=== PATIENT | male | born 1950 ===

== ENCOUNTER 2020-05-23 05:49 | Inpatient (IN) | payer OTHER, SELFPAY ==
[2020-05-23 06:44] LABS: Absolute Lymphocytes (CBC) 1.3 K/uL (0.7-4.9); Basophils % 0.2 % (0-1.3); Hematocrit 39.2 % (39.6-49.0); Lymphocytes % 8.6 % (15.3-44.8); MPV 7.7 fL (7.6-11.3); RBC Red Blood Cell Count 4.35 M/uL (4.33-5.43)
[2020-05-23] MEDS ORDERED: NA CHLORIDE 0.9% 500 ML ONE (06:44)
[2020-05-23 06:45] LABS: Protime INR 1.03
[2020-05-23 07:11] LABS: ALT/SGPT 38 U/L (12-78); AST/SGOT 42 U/L (15-37); Albumin 3.1 g/dL (3.4-5.0); Alkaline Phosphatase 117 U/L (45-117); BUN Blood Urea Nitrogen 14 mg/dL (7-18); Bicarbonate 26 mmol/L (21-32); Bilirubin Direct 0.1 mg/dL (0-0.2); Bilirubin Total 0.4 mg/dL (0.2-1.0); Glucose Level 108 mg/dL (74-106); Lipase 101 U/L (73-393); Magnesium 2.8 mg/dL (1.8-2.4); NT PRO-BNP 151 pg/mL (<125); Potassium 3.8 mmol/L (3.5-5.1); Protein, Total 6.8 g/dL (6.4-8.2); Sodium Level 142 mmol/L (136-145); Troponin (Emerg Dept Use Only) < 0.02 ng/mL (0.0-0.045)
[2020-05-23 07:25] LABS: Creatine Phosphokinase 1378 U/L (39-308)
[2020-05-23 08:17] LABS: Urine Appearance CLOUDY (Clear); Urine Bilirubin NEGATIVE (Negative); Urine Blood 3+ (Negative); Urine Color YELLOW (Yellow); Urine Glucose NEGATIVE (Negative); Urine Protein TRACE (Negative); Urine pH 6.5 (5.0-7.0)
[2020-05-23 08:18] LABS: Urine Microscopic Reflex ORDER UMIC
--- NOTE | 2020-05-23 08:19 | RAD REPORT ---
EXAM DESCRIPTION: CT - Head Brain Wo Cont - 05/23/2020 6:51 am CLINICAL HISTORY: SYNCOPE Fall, trauma, head injury COMPARISON: No comparisons TECHNIQUE: All CT scans are performed using dose optimization technique as appropriate and may inclu de automated exposure control or mA/KV adjustment according to patient size. FINDINGS: No intracranial hemorrhage, hydrocephalus or extra-axial fluid collection.Mild brain atrop hy is present.No areas of brain edema or evidence of midline shift. The paranasal sinuses and mastoids are clear. The calvarium is intact. IMPRESSION: No acute intracranial abnormality.
[2020-05-23 08:20] LABS: Urine Bacteria <20 /HPF (NONE SEEN); Urine RBC 20-50 /HPF (NONE SEEN)
--- NOTE | 2020-05-23 08:44 | ER ---
Nurse's Notes [facility] Name: Selvin Pappas Age: 69 yrs Sex: Male : 1950 Arrival Date: 05/23/2020 Time: 05:50 Bed 16 [facility] MD: Diagnosis: Syncope and collapse Presentation: 05/23 05:54 Chief complaint: EMS states: they were initially toned out for report of pt falling out bb of bed they did a lift assist and pt refused to come to the ED at that time then pt got up to go to the bathroom later and had a syncopal episode. Coronavirus screen: At this time, the client does not indicate any symptoms associated with coronavirus-19. Ebola Screen: No symptoms or risks identified at this time. Initial Sepsis Screen: Does the patient meet any 2 criteria? No. Patient's initial sepsis screen is negative. Does the patient have a suspected source of infection? No. Patient's initial sepsis screen is negative. Risk Assessment: Do you want to hurt yourself or someone else? Patient reports no desire to harm self or others. Onset of symptoms was May 23, 2020. 05:54 Method Of Arrival: EMS: [facility] bb 05:54 Acuity: MIKE 2 bb 06:00 Care prior to arrival: Glucose check: 125. bb Historical: - Allergies: 05:59 PENICILLINS; bb - Home Meds: 05:59 gabapentin oral oral [Active]; bb - PMHx: 05:59 Hypertension; unable to obtain full medical history; bb - PSHx: 05:59 Unable to obtain; bb - Immunization history:: Adult Immunizations up to date, Adult Immunizations up to date, Arsh and Arsh. - Social history:: Smoking status: Patient denies any tobacco usage or history of. Smoking status: Patient denies any tobacco usage or history of. Patient/guardian denies using alcohol, street drugs, IV drugs. - Family history:: not pertinent. - Hospitalizations: : No recent hospitalization is reported. Screenin:53 Abuse screen: Denies threats or abuse. Denies injuries from another. Nutritional sf screening: No deficits noted. Tuberculosis screening: No symptoms or risk factors identified. Fall Risk Fall in past 12 months (25 points). No secondary diagnosis (0 pts). IV access (20 points). Ambulatory Aid- None/Bed Rest/Nurse Assist (0 pts). Gait- Weak (10 pts.). Mental Status- Oriented to own ability (0 pts). Total Valle Fall Scale indicates High Risk Score (45 or more points). Assessment: 05:53 General: Appears in no apparent distress. comfortable, obese, unkempt, Behavior is sf calm, cooperative. Pain: Complains of pain in right connor and left knee. Neuro: Level of Consciousness is awake, alert, Oriented to person, place, time, situation, Reports a syncopal episode Denies weakness dizziness, difficulty swallowing, paresthesias numbness headache. Cardiovascular: Reports syncope, Denies chest pain, shortness of breath, Patient's skin is warm and dry. Edema is 3+ to left leg and right leg Rhythm is sinus rhythm with 1st degree heart block. Respiratory: No deficits noted. Airway is patent Respiratory effort is even, unlabored, Respiratory pattern is regular, symmetrical. GI: No signs and/or symptoms were reported involving the gastrointestinal system. Abdomen is obese. : No deficits noted. No signs and/or symptoms were reported regarding the genitourinary system. EENT: No deficits noted. No signs and/or symptoms were reported regarding the EENT system. Derm: Skin is pink, warm \T\ dry. Wound noted right connor and left knee Wound is left knee abrasion, no bleeding, scrapes to right connor. Musculoskeletal: Circulation, motion, and sensation intact. Range of motion: limited in all extremities, Reports pain in right connor and left knee. 07:18 Reassessment: Patient appears in no apparent distress at this time. Patient and/or jd3 family updated on plan of care and expected duration. Pain level reassessed. Patient is alert, oriented x 3, equal unlabored respirations, skin warm/dry/pink. pt resting in room, no sign of distress at this time, call light in reach. 09:11 Reassessment: Patient appears in no apparent distress at this time. Patient and/or bw family updated on plan of care and expected duration. Pain level reassessed. Patient is alert, oriented x 3, equal unlabored respirations, skin warm/dry/pink. 09:11 Reassessment: unable to get standing orthostatic bp due to pt injury from falling and bw weight. reported to Dr. Driver. 11:10 Reassessment: Patient appears in no apparent distress at this time. Patient and/or bw family updated on plan of care and expected duration. Pain level reassessed. Patient is alert, oriented x 3, equal unlabored respirations, skin warm/dry/pink. 12:27 Reassessment: Patient appears in no apparent distress at this time. Patient and/or bw family updated on plan of care and expected duration. Pain level reassessed. Patient is alert, oriented x 3, equal unlabored respirations, skin warm/dry/pink. 12:40 Reassessment: Spoke with patients . Pt moved to hospital bed. bw Vital Signs: 05:54 BP 131 / 56; Pulse 83; Resp 18 S; Temp 98.1(O); Pulse Ox 97% on R/A; Weight 172.37 kg bb (R); Height 6 ft. 0 in. (182.88 cm) (R); Pain 7/10; 06:00 BP 122 / 62; Pulse 76; Resp 18; Pulse Ox 97% ; sf 06:30 BP 135 / 60; Pulse 79; Resp 18; Pulse Ox 97% ; sf 06:54 BP 139 / 60; Pulse 82; Resp 18; Pulse Ox 100% ; sf 07:19 BP 141 / 62; Pulse 80; Resp 17 S; Pulse Ox 97% on R/A; jd3 09:11 BP 123 / 57 Supine; Pulse 84; Resp 20; Pulse Ox 98% on R/A; bw 09:11 BP 118 / 69 Sitting; Pulse 95; Resp 20; Pulse Ox 98% ; bw 11:10 BP 134 / 64; Pulse 86; Resp 18; Pulse Ox 95% on R/A; bw 12:40 BP 104 / 86; Pulse 79; Resp 18; Pulse Ox 96% ; bw 05:54 Body Mass Index 51.54 (172.37 kg, 182.88 cm) ED Course: 05:50 Patient arrived in ED. cl3 05:53 Dimitrios Seymour RN is Primary Nurse. sf 05:53 Patient has correct armband on for positive identification. Placed in gown. Bed in low sf position. Call light in reach. Side rails up X2. threat monitoring analyst on. Pulse ox on. NIBP on. Door closed. Noise minimized. Visitors limited. Lights dimmed. Warm blanket given. Verbal reassurance given. 05:58 Triage completed. bb 05:59 Hernandez, Joao, MD is Attending Physician. rn 05:59 Arm band placed on Patient placed in an exam room, on a stretcher, on equipment monitor phototypesetting, bb on pulse oximetry. 06:15 Initial lab(s) drawn, by me, sent to lab. Inserted saline lock: 20 gauge in left sf antecubital area, using aseptic technique. Blood collected. 06:15 BNP Sent, Basic Metabolic Panel, CBC with Diff, CPK, Hepatic Function, Lipase, sf Magnesium Sent. 06:15 Troponin (emerg Dept Use Only), Ptt, Activated, Protime (+inr) Sent. sf 06:32 EKG done, by ED staff, reviewed by Joao Hernandez MD. sf 06:[address] via stretcher. sf 06:45 CT Head Brain wo Cont Sent. sf 06:55 Patient moved back from CT. sf 07:02 Report given to LILLIE Skaggs. sf 07:18 Giles Madrigal RN is Primary Nurse. [facility] 07:27 Attending Physician role handed off by Joao Hernandez MD tw4 07:27 Aureliano Driver MD is Attending Physician. tw4 08:03 Urine Microscopic Only Sent. 5 08:03 UA Sent. 5 08:43 Terrell Hernandez MD is Hospitalizing Provider. tw4 11:40 CT Stone Protocol In Process Unspecified. EDMI 12:27 No provider procedures requiring assistance completed. Patient admitted, IV remains in bw place. 12:54 Urine Culture Sent. bw Administered Medications: 06:27 Drug: NS 0.9% 500 ml Route: IV; Rate: bolus; Site: left antecubital; 09:01 Drug: Cipro (ciprofloxacin) 500 mg Route: PO; 11:13 Follow up: Response: No adverse reaction Point of Care Testing: Blood Glucose: 06:18 Blood Glucose: 105 mg/dL; Ranges: Outcome: 08:44 Decision to Hospitalize by Provider. tw4 12:27 Admitted to Med/surg 12:27 Condition: stable 12:27 Discharge instructions given to patient, family. 14:44 Patient left the ED. eb Signatures: Dispatcher [employer] EDMI Merari Beck RN RN bb Nieto, Roman, MD MD rn Martinez, Maria [facility] Giles Madrigal RN RN jd3 Wadley, Aureliano, MD MD tw4 Emily Miramontes Charde cl3 Dimitrios Seymour RN RN Kae Moody RN RN Corrections: (The following items were deleted from the chart) 06:02 05:53 General: Appears in no apparent distress. comfortable, Behavior is calm, sf cooperative, sf 06:02 05:53 Cardiovascular: No deficits noted. Reports syncope, Denies chest pain, shortness sf of breath, Patient's skin is warm and dry. Rhythm is sinus rhythm sf 06:38 06:24 PROBNP+C.LAB.BRZ drawn and sent. sf sf 06:38 06:24 BASIC METABOLIC PANEL+C.LAB.BRZ drawn and sent. sf sf 06:38 06:24 CBC+H.LAB.BRZ drawn and sent. sf sf 06:38 06:24 CREATINE PHOSPHOKINASE+C.LAB.BRZ drawn and sent. sf sf 06:38 06:24 HEPATIC FUNCTION+C.LAB.BRZ drawn and sent. sf sf 06:38 06:24 LIPASE+C.LAB.BRZ drawn and sent. sf sf 06:38 06:24 MAGNESIUM+C.LAB.BRZ drawn and sent. sf sf 06:40 05:53 Cardiovascular: Reports syncope, Denies chest pain, shortness of breath, sf Patient's skin is warm and dry. Edema is 3+ to left leg and right leg Rhythm is sinus rhythm sf 06:41 06:18 Reassessment: FSB mg/dL sf sf 06:50 06:45 TROPONIN (EMERG DEPT USE ONLY)+C.LAB.BRZ drawn and sent. sf 06:50 06:45 PTT, ACTIVATED+COAG.LAB.BRZ drawn and sent. sf sf 06:50 06:46 PROTIME (+INR)+COAG.LAB.BRZ drawn and sent. [facility] 06:56 06:[address] Patient moved [address]. sf sf
--- NOTE | 2020-05-23 08:44 | EDPHYS ---
Physician Documentation [facility] Name: Selvin Pappas Age: 69 yrs Sex: Male : 1950 Arrival Date: 05/23/2020 Time: 05:50 Bed 16 Private MD: ED Physician Aureliano Driver HPI: 05/23 06:43 This 69 yrs old Unknown Male presents to ER via EMS with complaints of Syncope. rn 06:43 The patient has experienced syncope. Onset: The symptoms/episode began/occurred just rn prior to arrival. Duration: This was a single episode. Associated injury: Other: abrasion, contusion, bilateral knees. Associated signs and symptoms: Pertinent negatives: abdominal pain, agitation, blurred vision, chest pain, confusion, diaphoresis, headache. Current symptoms: Currently, the patient is not experiencing any symptoms. The patient has not experienced similar symptoms in the past. The patient has not recently seen a physician. Reports now 3 episodes of syncope over last 3 days, nothing feels broken, landed on his knees this AM when getting up to urinate, does not feel it coming, just wakes up on ground. No chest pain/sob/abd pain/vomiting/diarrhea. . 06:43 Also feels like his gabapentin that he started this week may be contributing to his rn syncope. . Historical: - Allergies: 05:59 PENICILLINS; bb - Home Meds: 05:59 gabapentin oral oral [Active]; bb - PMHx: 05:59 Hypertension; unable to obtain full medical history; bb - PSHx: 05:59 Unable to obtain; bb - Immunization history:: Adult Immunizations up to date, Adult Immunizations up to date, Arsh and Arsh. - Social history:: Smoking status: Patient denies any tobacco usage or history of. Smoking status: Patient denies any tobacco usage or history of. Patient/guardian denies using alcohol, street drugs, IV drugs. - Family history:: not pertinent. - Hospitalizations: : No recent hospitalization is reported. ROS: 06:43 Constitutional: Negative for fever, chills, and weight loss, Eyes: Negative for injury, rn pain, redness, and discharge, Neck: Negative for injury, pain, and swelling, Cardiovascular: Negative for chest pain, palpitations, and edema, Respiratory: Negative for shortness of breath, cough, wheezing, and pleuritic chest pain, Abdomen/GI: Negative for abdominal pain, nausea, vomiting, diarrhea, and constipation, Back: + chronic back pain : + increased urinary frequency MS/Extremity: + abrasions to knees Skin: Negative for injury, rash, and discoloration, Neuro: Negative for headache, numbness, tingling, and seizure. Exam: 06:43 Constitutional: Overweight male, no acute distress, appears weak all over Head/Face: rn Normocephalic, atraumatic. Cardiovascular: Regular rate and rhythm. No pulse deficits. Respiratory: No increased work of breathing, no retractions or nasal flaring. Abdomen/GI: soft, non-tender, no masses Skin: Warm, dry MS/ Extremity: Pulses equal, no cyanosis, + abrasions bilateral knees, no gross deformity Neuro: Awake and alert, GCS 15, oriented to person, place, time, and situation. Cranial nerves II-XII grossly intact. Motor strength 4/5 in all extremities. Sensory grossly intact. Vital Signs: 05:54 BP 131 / 56; Pulse 83; Resp 18 S; Temp 98.1(O); Pulse Ox 97% on R/A; Weight 172.37 kg bb (R); Height 6 ft. 0 in. (182.88 cm) (R); Pain 7/10; 06:00 BP 122 / 62; Pulse 76; Resp 18; Pulse Ox 97% ; sf 06:30 BP 135 / 60; Pulse 79; Resp 18; Pulse Ox 97% ; sf 06:54 BP 139 / 60; Pulse 82; Resp 18; Pulse Ox 100% ; sf 07:19 BP 141 / 62; Pulse 80; Resp 17 S; Pulse Ox 97% on R/A; jd3 09:11 BP 123 / 57 Supine; Pulse 84; Resp 20; Pulse Ox 98% on R/A; bw 09:11 BP 118 / 69 Sitting; Pulse 95; Resp 20; Pulse Ox 98% ; bw 11:10 BP 134 / 64; Pulse 86; Resp 18; Pulse Ox 95% on R/A; bw 12:40 BP 104 / 86; Pulse 79; Resp 18; Pulse Ox 96% ; bw 05:54 Body Mass Index 51.54 (172.37 kg, 182.88 cm) MDM: 05:59 Patient medically screened. rn 18:05 Differential Diagnosis: aortic aneurysm, cardiac arrhythmia, vasovagal episode. Data tw4 reviewed: vital signs, nurses notes. Data interpreted: Pulse oximetry: Interpretation: normal. Counseling: I had a detailed discussion with the patient and/or guardian regarding: the historical points, exam findings, and any diagnostic results supporting the discharge/admit diagnosis, the presence of at least one elevated blood pressure reading (>120/80) during this emergency department visit, lab results, radiology results. Physician consultation: Terrell Hernandez MD regarding admission, to the telemetry unit. patient's condition, and will see patient in ED. 05/23 06:10 Order name: Basic Metabolic Panel rn 05/23 06:10 Order name: CBC with Diff rn 05/23 06:10 Order name: CPK rn 05/23 06:10 Order name: Hepatic Function rn 05/23 06:10 Order name: Lipase rn 05/23 06:10 Order name: Magnesium rn 05/23 06:10 Order name: Protime (+inr) rn 05/23 06:10 Order name: Ptt, Activated rn 05/23 06:10 Order name: Troponin (emerg Dept Use Only) rn 05/23 06:10 Order name: BNP rn 05/23 06:10 Order name: Urine Microscopic Only rn 05/23 06:31 Order name: Glucose, Ancillary Testing; Complete Time: 06:59 EDMS 05/23 06:44 Order name: CBC with Automated Diff; Complete Time: 06:59 EDMS 05/23 07:30 Interpretation: Normal except: WBC 15.00; HGB 12.6; HCT 39.2; LYM% 8.6; GUS% 83.0; NEUT tw4 A 12.4. 05/23 06:47 Order name: Protime (+INR); Complete Time: 06:59 EDMS 05/23 06:47 Order name: PTT, Activated Partial Thromb; Complete Time: 06:59 EDMS 05/23 07:25 Order name: Basic Metabolic Panel; Complete Time: 07:28 EDMS 05/23 07:28 Interpretation: Normal except: GLUC 108; GFR 34; CRE 1.96. tw4 05/23 07:25 Order name: Liver (Hepatic) Function; Complete Time: 07:28 EDMS 05/23 07:28 Interpretation: Normal except: AST 42; ALB 3.1; GLOB 3.7; A/G 0.8. [facility] 05/23 07:25 Order name: Creatine Phosphokinase; Complete Time: 07:28 EDMS 05/23 07:28 Interpretation: Normal except: CPK 1378. [facility] 05/23 07:25 Order name: Troponin (Emerg Dept Use Only); Complete Time: 07:28 EDMS 05/23 07:29 Interpretation: Within normal limits: TROPED < 0.02. 05/23 07:25 Order name: NT PRO-BNP; Complete Time: 07:28 EDMS 05/23 07:29 Interpretation: Abnormal: NT PRO-BNP 151. [facility] 05/23 07:25 Order name: Magnesium; Complete Time: 07:28 EDMS 05/23 07:29 Interpretation: Abnormal: MG 2.8. [facility] 05/23 07:25 Order name: Lipase; Complete Time: 07:28 EDIL 05/23 07:29 Interpretation: Within normal limits: LIP 101. [facility] 05/23 07:51 Order name: UA 05/23 08:18 Order name: Urinalysis; Complete Time: 08:33 EDIL 05/23 08:33 Interpretation: UESTR 3+; UPROT TRACE; UBLD 3+. [facility] 05/23 08:20 Order name: Urine Microscopic Only; Complete Time: 08:34 EDIL 05/23 08:34 Interpretation: SQEPI 5-10; URBC 20-50; UWBC >50. [facility] 05/23 10:42 Order name: Urine Culture [facility] 05/23 12:53 Order name: COVID-19 : Document "Date of Symptom Onset" if Symptomatic. 05/23 13:12 Order name: CORONAVIRUS EDIL 05/23 14:00 Order name: SARS-COV-2 RT PCR EDIL 05/23 14:29 Order name: C-Reactive Protein EDIL 05/23 06:10 Order name: CT Head Brain wo Cont; Complete Time: 06:59 rn 05/23 06:10 Order name: EKG; Complete Time: 06:11 rn 05/23 06:10 Order name: Cardiac monitoring; Complete Time: 06:11 rn 05/23 06:10 Order name: EKG - Nurse/Tech; Complete Time: 06:37 rn 05/23 06:10 Order name: IV Saline Lock; Complete Time: 06:20 rn 05/23 06:10 Order name: Labs collected and sent; Complete Time: 06:20 rn 05/23 06:10 Order name: O2 Per Protocol; Complete Time: 06:11 rn 05/23 06:10 Order name: O2 Sat Monitoring; Complete Time: 06:11 05/23 06:10 Order name: Urine Dipstick-Ancillary (obtain specimen); Complete Time: 07:56 rn 05/23 06:10 Order name: Glucose Level; Complete Time: 06:20 05/23 08:20 Order name: CT; Complete Time: 08:27 EDIL 05/23 08:35 Order name: Orthostatic Blood Pressure; Complete Time: 09:01 [facility] 05/23 10:23 Order name: CT Stone Protocol [facility] 05/23 12:48 Order name: CONS Physician Consult; Complete Time: 12:54 [facility] 05/23 14:33 Order name: US [facility] 05/23 14:41 Order name: T4 Free [facility] 05/23 14:41 Order name: Thyroid Stimulating Hormone EDMS Administered Medications: 06:27 Drug: NS 0.9% 500 ml Route: IV; Rate: bolus; Site: left antecubital; sf 09:01 Drug: Cipro (ciprofloxacin) 500 mg Route: PO; bw 11:13 Follow up: Response: No adverse reaction bw Point of Care Testing: Blood Glucose: 06:18 Blood Glucose: 105 mg/dL; sf Ranges: Critical Glucose Levels:Adult <50 mg/dl or >400 mg/dl <40 mg/dl or >180 mg/dl Disposition: 05/23/20 08:44 Hospitalization ordered by Terrell Hernandez for Observation. Preliminary diagnosis is Syncope and collapse. - Bed requested for Telemetry/MedSurg (observation). - Status is Observation. eb - Condition is Stable. - Problem is an ongoing problem. - Symptoms are unchanged. Signatures: Dispatcher [employer] [facility] Mckayla Naidu RN RN dw Ballard, Brenda, RN RN bb Nieto, Roman, MD MD rn Wadley, Terrence, MD MD tw4 Emily Miramontes Steven, RN RN sf MoodyKae RN RN bw Corrections: (The following items were deleted from the chart) 14:19 08:44 Hospitalization Ordered by Terrell Hernandez MD for Observation. Preliminary dw diagnosis is Syncope and collapse. Bed requested for Telemetry/MedSurg (observation). Status is Observation. Condition is Stable. Problem is an ongoing problem. Symptoms are unchanged. tw4 14:44 14:19 05/23/2020 08:44 Hospitalization Ordered by Terrell Hernandez MD for Observation. eb Preliminary diagnosis is Syncope and collapse. Bed requested for Telemetry/MedSurg (observation). Status is Observation. Condition is Stable. Problem is an ongoing problem. Symptoms are unchanged. dw
[2020-05-23] MEDS ORDERED: CIPROFLOXACIN HCL 500 MG TAB ONE (09:05)
--- NOTE | 2020-05-23 12:12 | RAD REPORT ---
EXAM DESCRIPTION: CT - Stone Protocol - 05/23/2020 11:40 am CLINICAL HISTORY: Flank pain. KIDNEY STONES COMPARISON: No comparisons TECHNIQUE: Axial images were obtained without oral or IV contrast. Lack of contrast limits solid org an and vascular assessment. The [id number] spans the entirety of the system partially obscuring uppermost abdomen and lung bases. Coronal reformatted images were obtained and reviewed. All CT scans are performed using dose optimization technique as appropriate and may include automated exposure control or mA/KV adjustment according to patient size. FINDINGS: Mild linear subsegmental atelectasis is present in both lung bases posteriorly. Small hiat al hernia. Small low-density lesion measuring 11 mm is seen in the anterior right lobe of the liver.No intra or extrahepatic biliary tree dilatation. The pancreas and adrenal glands are normal. No pathologic lymph adenopathy in the abdomen or pelvis. Several stones are present in the left kidney. No hydronephrosis is seen. No right-sided stones or hy dronephrosis. No bowel obstruction, free air, free fluid or abscess. Normal appendix noted.Moderate stool is presen t throughout the colon. Moderate lumbar degenerative changes are present. IMPRESSION: Left nephrolithiasis is noted without hydronephrosis. Moderate retained stool throughout the colon.
[2020-05-23] MEDS ORDERED: NA CHLORIDE 0.9% 1,000 ML ONE (14:21)
--- NOTE | 2020-05-23 14:32 | RAD REPORT ---
EXAM DESCRIPTION: - CP - 05/23/2020 2:06 pm CLINICAL HISTORY: syncope COMPARISON: No comparisons TECHNIQUE: Real-time sonographic evaluation of bilateral carotid and vertebral systems was performed . Hinton scale and Doppler interrogation were performed with waveform tracing bilaterally. FINDINGS: Normal high resistance waveforms are noted in both external carotid arteries. The common c arotid arteries and internal carotid arteries show normal low resistance waveforms. Mild plaquing changes are present without visual evidence for significant luminal narrowing. Peak sys tolic and end diastolic velocity values and the ICA/CCA ratios are in the non-hemodynamically signifi cant range. Antegrade flow was identified in the left vertebral artery. Right vertebral artery could not be visua lized. Velocity values and ratios were recorded and are retained in the patient's imaging records. IMPRESSION: No significant atherosclerotic changes noted. No evidence of a hemodynamically significant stenosis. Nonvisualization of the right vertebral artery. Nonvisualization does not necessarily equate to disse ction or occlusion. Nonvisualization can occur in normal asymptomatic patients due to small vessel si ze or anatomic limitations.
[2020-05-23 14:41] LABS: Thyroid Stimulating Hormone 2.53 uIU/mL (0.360-3.740)
[2020-05-23] MEDS: NA CHLORIDE 0.9% 1,000 ML IV SCH ×2 (15:16→22:21)
[2020-05-23 15:44] VITALS: BMI 51.5
--- NOTE | 2020-05-23 17:49 | P.HP ---
Certification for Inpatient Patient admitted to: Inpatient With expected LOS: >2 Midnights Practitioner: I am a practitioner with admitting privileges, knowledge of patient current condition, hospital course, and medical plan of care. Services: Services provided to patient in accordance with Admission requirements found in Title 42 Section 412.3 of the Code of Federal Regulations Patient History Date of Service: 05/23/20 Reason for admission: MATT, UTI, Syncope History of Present Illness: 69yo M, presents to ED after multiple falls and 3 syncopal episodes at home. Patient states he was in usual state of health until ~3-4 days ago. He began to have generalized weakness, one episodes of "burning up". Over past 2 days he fell trying to get out of bed due to generalized weakness. He had 2-3 episodes of "blacking out" for a few seconds when getting up to go to the bathroom. He reports urinating more frequently lately. After this happened, he feels like his L leg is slightly weaker - but states this is chronic and happens from time to time, since he has had chronic back pain. Was told he needed surgery for his back but he declines. Workup in ED revealed negative CT Head, leukocytosis, MATT, UA concerning for UTI. He reports h/o kidney stone and infection in the past. He is admitted for further evaluation / treatment. Allergies Penicillins Allergy (Verified 05/23/20 11:18) Hives/Rash Home Medications: Amlodipine Besylate 10 mg PO DAILY 05/23/20 Aspirin 81 mg PO DAILY 05/23/20 Atorvastatin Calcium [Lipitor] 80 mg PO DAILY 05/23/20 Bupropion HCl [Wellbutrin Xl] 300 mg PO DAILY 05/23/20 Gabapentin 300 mg PO DAILY 05/23/20 Gabapentin 600 mg PO BEDTIME 05/23/20 Losartan Potassium 1 tab PO DAILY 05/23/20 Melatonin [Melatonin*] 1 tab PO BEDTIME 05/23/20 Niacin [Niacin ER] 1 tab PO BEDTIME 05/23/20 Potassium Gluconate [Potassium] 99 mg PO BEDTIME 05/23/20 Trazodone HCl [Desyrel] 1 tab PO BEDTIME 05/23/20 Venlafaxine HCl [Effexor] 150 mg PO DAILY 05/23/20 Zolpidem Tartrate [Ambien] 10 mg PO BEDTIME 05/23/20 hydroCHLOROthiazide [Hydrochlorothiazide*] 25 mg PO DAILY 05/23/20 - Past Medical/Surgical History Has patient received pneumonia vaccine in the past: No Diabetic: No -: HTN -: Anxiety -: Depression -: Insomnia -: Frequent falls -: Chronic pain -: Neck fusion - Family History Father -: Hypertension Mother -: Hypertension - Social History Smoking Status: Former smoker Alcohol use: No CD- Drugs: No Caffeine use: Yes Place of Residence: Home Review of Systems 10-point ROS is otherwise unremarkable Physical Examination - Vital Signs Temperature: 98.1 F Blood Pressure: 104/86 Pulse: 79 Respirations: 18 - Studies Laboratory Data (last 24 hrs) 05/23/20 06:15: PT 11.8, INR 1.03, APTT 30.3 05/23/20 06:15: WBC 15.00 H, Hgb 12.6 L, Hct 39.2 L, Plt Count 287 05/23/20 06:15: Sodium 142, Potassium 3.8, BUN 14, Creatinine 1.96 H, Glucose 108 H, Magnesium 2.8 H, Total Bilirubin 0.4, AST 42 H, ALT 38, Alkaline Phosphatase 117, Lipase 101 Assessment and Plan - Advance Directives Does patient have a Living Will: No Does patient have a Durable POA for Healthcare: No Physician Review Additional Text: Physical Exam: Gen: NAD, obese HEENT: normal conjunctiva, sclera anicteric CV: regular rate/rhythm, no murmur Pulm: diminished bilaterally, but clear to auscultation Abd: soft, nontender, nondistended Ext: no rash, no lesions, several scattered ecchymosis on arms/legs/L knee Neuro: AAOx3, 5/5 str throughout except 4/5 str at LLE, normal sensation bilaterally Problem List Syncope UTI MATT elevated CPK Chronic back pain with LLE Weakness Anxiety/Depression HTN -unclear etiology of syncope - reports only down for a few seconds, no loss of bowel/bladder function -elevated CPK, likely from falls /rhabdo, continue IVF, may be contributing to MATT -MATT possibly pre-renal, pt refused orthostatics -UTI, pt reports urinary frequency, had infection once before with kidney stone -start Levaquin -trend labs / CPK -CT abd/pelvis done - no hydronephrosis, +nephrolithiasis, no other acute findings -nephrology consulted -MRI, echo, carotid U/S ordered to eval causes of syncope VTE: lovenox Code: full Dispo: anticipate dc home in ~48hrs Time Spent Managing Pts Care (In Minutes): 60
[2020-05-23] MEDS: GABAPENTIN 300 MG CAP PO SCH ×2 (21:00→21:35)
[2020-05-23] MEDS: Levofloxacin 750mg IV 750 MG/150 ML BAG IV SCH (21:35)
[2020-05-23] MEDS: MELATONIN 3 MG TABLET PO SCH (21:35)
--- NOTE | 2020-05-23 22:21 | P.CNS ---
Date of Consult: 05/23/20 Reason for Consult: MATT Requesting Physician: Terrell Hernandez Chief Complaint: MATT, UTI, Syncope History of Present Illness: 69yo M, presents to ED after multiple falls and 3 syncopal episodes at home. Patient states he was in usual state of health until ~3-4 days ago. He began to have generalized weakness, one episodes of "burning up". Over past 2 days he fell trying to get out of bed due to generalized weakness. He had 2-3 episodes of "blacking out" for a few seconds when getting up to go to the bathroom. He reports urinating more frequently lately. After this happened, he feels like his L leg is slightly weaker - but states this is chronic and happens from time to time, since he has had chronic back pain. Was told he needed surgery for his back but he declines. Reports taking Aleve every three weeks. Reports ibuprofen twice per week. Denies difficulty with urination but reports frequency. States that he fell on Tuesday due to weakness. +Back pain and leg pain. 06:43 This 69 yrs old Unknown Male presents to ER via EMS with complaints of Syncope. rn 06:43 The patient has experienced syncope. Onset: The symptoms/episode began/occurred just rn prior to arrival. Duration: This was a single episode. Associated injury: Other: abrasion, contusion, bilateral knees. Associated signs and symptoms: Pertinent negatives: abdominal pain, agitation, blurred vision, chest pain, confusion, diaphoresis, headache. Current symptoms: Currently, the patient is not experiencing any symptoms. The patient has not experienced similar symptoms in the past. The patient has not recently seen a physician. Reports now 3 episodes of syncope over last 3 days, nothing feels broken, landed on his knees this AM when getting up to urinate, does not feel it coming, just wakes up on ground. No chest pain/sob/abd pain/vomiting/diarrhea. . 06:43 Also feels like his gabapentin that he started this week may be contributing to his rn syncope. Allergies Penicillins Allergy (Verified 05/23/20 11:18) Hives/Rash Home medications list reviewed: Yes Home Medications: Amlodipine Besylate 10 mg PO DAILY 05/23/20 Aspirin 81 mg PO DAILY 05/23/20 Atorvastatin Calcium [Lipitor] 80 mg PO DAILY 05/23/20 Bupropion HCl [Wellbutrin Xl] 300 mg PO DAILY 05/23/20 Gabapentin 300 mg PO DAILY 05/23/20 Gabapentin 600 mg PO BEDTIME 05/23/20 Losartan Potassium 1 tab PO DAILY 05/23/20 Melatonin [Melatonin*] 1 tab PO BEDTIME 05/23/20 Niacin [Niacin ER] 1 tab PO BEDTIME 05/23/20 Potassium Gluconate [Potassium] 99 mg PO BEDTIME 05/23/20 Trazodone HCl [Desyrel] 1 tab PO BEDTIME 05/23/20 Venlafaxine HCl [Effexor] 150 mg PO DAILY 05/23/20 Zolpidem Tartrate [Ambien] 10 mg PO BEDTIME 05/23/20 hydroCHLOROthiazide [Hydrochlorothiazide*] 25 mg PO DAILY 05/23/20 - Past Medical/Surgical History Diabetic: No -: HTN -: Anxiety -: Depression -: Insomnia -: Frequent falls -: Chronic pain -: Neck fusion - Family History Father Medical History: Hypertension Mother Medical History: Hypertension - Social History Alcohol use: No CD- Drugs: No Caffeine use: Yes Place of Residence: Home Review of Systems 10-point ROS is otherwise unremarkable General: Weakness, Malaise Respiratory: SOB with Excertion Neurological: Weakness Physical Examination Temp Pulse Resp BP Pulse Ox 98.1 F 79 18 104/86 95 05/23/20 17:58 05/23/20 17:58 05/23/20 17:58 05/23/20 17:58 05/23/20 16:00 General: Oriented x3, Cooperative HEENT: Atraumatic Neck: Supple Respiratory: Diminished Cardiovascular: No edema, Regular rate/rhythm Gastrointestinal: Soft and benign, Non-distended Musculoskeletal: No clubbing, No contractures Integumentary: No rashes, No cyanosis, Skin lesion Neurological: Normal speech Laboratory Data (last 24 hrs) 05/23/20 06:15: PT 11.8, INR 1.03, APTT 30.3 05/23/20 06:15: WBC 15.00 H, Hgb 12.6 L, Hct 39.2 L, Plt Count 287 05/23/20 06:15: Sodium 142, Potassium 3.8, BUN 14, Creatinine 1.96 H, Glucose 108 H, Magnesium 2.8 H, Total Bilirubin 0.4, AST 42 H, ALT 38, Alkaline Phosphatase 117, Lipase 101 Imagings Data: EXAM DESCRIPTION: US - CP - 05/23/2020 2:06 pm CLINICAL HISTORY: syncope COMPARISON: No comparisons TECHNIQUE: Real-time sonographic evaluation of bilateral carotid and vertebral systems was performed. Hinton scale and Doppler interrogation were performed with waveform tracing bilaterally. FINDINGS: Normal high resistance waveforms are noted in both external carotid arteries. The common carotid arteries and internal carotid arteries show normal low resistance waveforms. Mild plaquing changes are present without visual evidence for significant luminal narrowing. Peak systolic and end diastolic velocity values and the ICA/CCA ratios are in the non-hemodynamically significant range. Antegrade flow was identified in the left vertebral artery. Right vertebral artery could not be visualized. Velocity values and ratios were recorded and are retained in the patient's imaging records. IMPRESSION: No significant atherosclerotic changes noted. No evidence of a hemodynamically significant stenosis. Nonvisualization of the right vertebral artery. Nonvisualization does not necessarily equate to dissection or occlusion. Nonvisualization can occur in normal asymptomatic patients due to small vessel size or anatomic limitations. EXAM DESCRIPTION: CT - Stone Protocol - 05/23/2020 11:40 am CLINICAL HISTORY: Flank pain. KIDNEY STONES COMPARISON: No comparisons TECHNIQUE: Axial images were obtained without oral or IV contrast. Lack of contrast limits solid organ and vascular assessment. The [id number] spans the entirety of the system partially obscuring uppermost abdomen and lung bases. Coronal reformatted images were obtained and reviewed. All CT scans are performed using dose optimization technique as appropriate and may include automated exposure control or mA/KV adjustment according to patient size. FINDINGS: Mild linear subsegmental atelectasis is present in both lung bases posteriorly. Small hiatal hernia. Small low-density lesion measuring 11 mm is seen in the anterior right lobe of the liver.No intra or extrahepatic biliary tree dilatation. The pancreas and adrenal glands are normal. No pathologic lymphadenopathy in the abdomen or pelvis. Several stones are present in the left kidney. No hydronephrosis is seen. No right-sided stones or hydronephrosis. No bowel obstruction, free air, free fluid or abscess. Normal appendix noted.Moderate stool is present throughout the colon. Moderate lumbar degenerative changes are present. IMPRESSION: Left nephrolithiasis is noted without hydronephrosis. Moderate retained stool throughout the colon. EXAM DESCRIPTION: CT - Head Brain Wo Cont - 05/23/2020 6:51 am CLINICAL HISTORY: SYNCOPE Fall, trauma, head injury COMPARISON: No comparisons TECHNIQUE: All CT scans are performed using dose optimization technique as appropriate and may include automated exposure control or mA/KV adjustment according to patient size. FINDINGS: No intracranial hemorrhage, hydrocephalus or extra-axial fluid collection.Mild brain atrophy is present.No areas of brain edema or evidence of midline shift. The paranasal sinuses and mastoids are clear. The calvarium is intact. IMPRESSION: No acute intracranial abnormality. Conclusions/Impression: A/P: Continue the current POC and Medications other than the changes listed. AM Labs PRN. Recommend daily weight. Please see the orders for complete details. MATT vs CKD. Intermittent NSAIDs. Hematuria -No NSAIDs -Send blood work for possible nephritis -Change IVF 1/2NS @100 -Send repeat UA in the morning Rhabdomyolysis -Continue IVF Left nephrolithiasis without obstruction -Continue IVF HTN with CKD -Hold HCTZ and Amlodipine Anemia in chronic illness -Monitor H&H Acute cystitis -Continue Levaquin -Follow up culture Thank you kindly for the consultation.
[2020-05-23] MEDS ORDERED: LACTULOSE 20 GM/30 ML UCUP PO ONE (22:28)
[2020-05-23] MEDS: NACHLORIDE 0.45% 1,000 ML IV SCH (23:03)
[2020-05-24 04:46] LABS: UR PROTEIN 36 mg/dL (<11.9); UR SODIUM 74 mmol/L (27-287)
[2020-05-24 05:01] LABS: Urine Appearance CLEAR (Clear); Urine Bilirubin NEGATIVE (Negative); Urine Blood 3+ (Negative); Urine Color YELLOW (Yellow); Urine Glucose NEGATIVE (Negative); Urine Protein NEGATIVE (Negative)
[2020-05-24 05:54] LABS: Urine Bacteria <20 /HPF (NONE SEEN); Urine Mucus 1+ /HPF (NONE SEEN)
[2020-05-24 07:56] LABS: Absolute Lymphocytes (CBC) 2.3 K/uL (0.7-4.9); Basophils % 0.6 % (0-1.3); Hematocrit 35.8 % (39.6-49.0); MPV 7.4 fL (7.6-11.3); RBC Red Blood Cell Count 4.04 M/uL (4.33-5.43)
[2020-05-24 08:30] LABS: Albumin 2.8 g/dL (3.4-5.0); Bilirubin Total 0.4 mg/dL (0.2-1.0); C-Reactive Protein 31.2 mg/L (<3.00); Magnesium 2.1 mg/dL (1.8-2.4); Phosphorus 3.6 mg/dL (2.5-4.9); Protein, Total 6.6 g/dL (6.4-8.2); Uric Acid 9.7 mg/dL (3.5-7.2)
[2020-05-24 08:33] LABS: Potassium 2.9 mmol/L (3.5-5.1)
[2020-05-24] MEDS ORDERED: GABAPENTIN 300 MG CAP PO SCH (09:00)
[2020-05-24] MEDS: ENOXAPARIN 40 MG/0.4 ML SQ SCH (09:00)
[2020-05-24] MEDS: ASPIRIN 81 MG CHEWABLE TABLET PO SCH (09:58)
[2020-05-24] MEDS: VENLAFAXINE HCL 75 MG TABLET PO SCH (09:59)
[2020-05-24] MEDS: ATORVASTATIN 80 MG TAB PO SCH (10:00)
[2020-05-24] MEDS: DOCUSATE NA 100 MG CAP PO SCH ×2 (10:00→21:00)
[2020-05-24] MEDS: KCL 20 MEQ/100 mL IVPB 20 MEQ/100 ML BAG IV SCH ×3 (10:00→15:15)
[2020-05-24] MEDS: NACHLORIDE 0.45% 1,000 ML IV SCH ×3 (10:01→21:25)
--- NOTE | 2020-05-24 16:29 | P.PN ---
Subjective Date of Service: 05/24/20 Chief Complaint: MATT, UTI, Syncope Subjective: No new changes (feels slightly better, reports some dizziness/lightheadedness at times, denies difficulty urinating, no n/v/d) Review of Systems 10-point ROS is otherwise unremarkable Physical Examination - Vital Signs Temperature: 97.7 F Blood Pressure: 129/60 Pulse: 65 Respirations: 19 Pulse Ox (%): 95 Assessment & Plan Physician Review Additional Text: Physical Exam: Gen: NAD, obese HEENT: normal conjunctiva, sclera anicteric CV: regular rate/rhythm, no murmur Pulm: diminished bilaterally, but clear to auscultation Abd: soft, nontender, nondistended Ext: no rash, no lesions, several scattered ecchymosis on arms/legs/L knee Neuro: AAOx3, 5/5 str throughout except 4/5 str at LLE, normal sensation bilaterally Problem List Syncope possible UTI MATT elevated CPK, rhabdomyolysis hypokalemia Chronic back pain with LLE Weakness Anxiety/Depression HTN -unclear etiology of syncope - reports only down for a few seconds, no loss of bowel/bladder function -elevated CPK, likely from falls /rhabdo, continue IVF, may be contributing to MATT -CPK worsening, renal function improving, urine more clear -UTI, pt reports urinary frequency, had infection once before with kidney stone -continue Levaquin -trend labs / CPK -CT abd/pelvis done - no hydronephrosis, +nephrolithiasis, no other acute findings -nephrology consulted -MRI, echo, carotid U/S ordered to eval causes of syncope; carotids WNL VTE: lovenox Code: full Dispo: anticipate dc home in ~48hrs Time Spent Managing Pts Care (In Minutes): 35
--- NOTE | 2020-05-24 19:55 | PN ---
Date of Progress Note: 05/24/2020 Subjective: The patient states that he is very agitated and paranoid at this time because he has not been able to sleep at all and he suffers from chronic insomnia and has not gotten his Ambien. He co mplains of severe pain. Objective: Vital Signs: Have been reviewed and are stable. General: He appears in no acute distress. HEENT: Atraumatic head. Multiple bruises noted over his lower extremities. Abdomen: Obese and nontender. Lungs: Clear. Heart: Auscultation of heart revealed regular rate and rhythm. Neuro: He is alert, awake, and oriented x3. Laboratory Data: At this time are showing sodium of 139, potassium of 2.9, BUN of 10, creatinine imp roving to 1.25. His CPK level was 8873, which has significantly worsened. His SPEP is pending at th is time. Procalcitonin was slightly high. CBC showing stable hemoglobin, hematocrit, and platelet c ount. Urinalysis showing persistently positive hematuria with some WBCs as well. His ANCA complemen t and other immunology testing are currently pending. Medications: Current medications have been reviewed in detail. Impression: 1.Syncopal episodes, etiology likely related to gabapentin that he was prescribed before. 2.Acute renal failure, likely secondary to rhabdomyolysis. Continue gentle hydration and monitor at this time. 3.Rhabdomyolysis from falls. Continue hydration. 4.Persistent hematuria. Unsure if this is from rhabdo versus real hematuria, but he does seem to palmer ve some RBCs in his urinalysis as well. We have sent of immunologic workup for further evaluation. 5.Severe insomnia. We will go ahead and give him some low-dose of Ambien and we will discuss with t he nurse cautiously. 6.Syncopal episodes being further evaluated with MRI, echo, cardiac, carotid ultrasound. Plan: Overall patient is clinically better. Creatinine is improving. His potassium is being replet ed. Continue to monitor closely and will follow up. VV/MODL Voice ID: [id number] Report ID: [id number]
[2020-05-24] MEDS: Levofloxacin 750mg IV 750 MG/150 ML BAG IV SCH (20:54)
[2020-05-24] MEDS ORDERED: POTASSIUM CL SA 10 MEQ TAB PO ONE (21:00)
[2020-05-24] MEDS: GABAPENTIN 300 MG CAP PO SCH (21:00)
[2020-05-24] MEDS: MELATONIN 3 MG TABLET PO SCH (21:01)
[2020-05-24] MEDS: ZOLPIDEM TARTRATE 5 MG TABLET PO PRN (21:01)
[2020-05-25] MEDS: NACHLORIDE 0.45% 1,000 ML IV SCH ×3 (04:35→17:39)
[2020-05-25 06:16] LABS: Absolute Lymphocytes (CBC) 1.9 K/uL (0.7-4.9); Basophils % 0.6 % (0-1.3); Hematocrit 36.9 % (39.6-49.0); MPV 7.6 fL (7.6-11.3); RBC Red Blood Cell Count 4.15 M/uL (4.33-5.43)
[2020-05-25 07:08] LABS: Bilirubin Total 0.5 mg/dL (0.2-1.0); C-Reactive Protein 32.8 mg/L (<3.00); Magnesium 1.9 mg/dL (1.8-2.4); Phosphorus 2.6 mg/dL (2.5-4.9); Potassium 3.8 mmol/L (3.5-5.1); Protein, Total 7.1 g/dL (6.4-8.2)
[2020-05-25] MEDS: ASPIRIN 81 MG CHEWABLE TABLET PO SCH (08:24)
[2020-05-25] MEDS: VENLAFAXINE HCL 75 MG TABLET PO SCH (08:24)
[2020-05-25] MEDS: DOCUSATE NA 100 MG CAP PO SCH ×2 (08:24→21:01)
[2020-05-25] MEDS: ATORVASTATIN 80 MG TAB PO SCH (08:24)
[2020-05-25] MEDS: ENOXAPARIN 40 MG/0.4 ML SQ SCH (08:24)
[2020-05-25] MEDS ORDERED: POTASSIUM CL SA 10 MEQ TAB PO ONE (09:00)
[2020-05-25] MEDS ORDERED: GABAPENTIN 100 MG CAP PO SCH (09:00)
--- NOTE | 2020-05-25 14:03 | P.PN ---
Subjective Date of Service: 05/25/20 Chief Complaint: MATT, UTI, Syncope Subjective: Improving (feels better today, less "brain fog", strength returning. urine getting a little more clear) Review of Systems 10-point ROS is otherwise unremarkable Physical Examination - Vital Signs Temperature: 98.2 F Blood Pressure: 127/61 Pulse: 78 Respirations: 20 Pulse Ox (%): 93 - Studies Microbiology Data (last 24 hrs): 05/23/20 07:40 Clean Catch Urine [place] Count - Final <10,000 CFU/ML. 05/23/20 07:40 Clean Catch Urine - Final MIXED MARIA C. Assessment & Plan Physician Review Additional Text: Physical Exam: Gen: NAD, obese HEENT: normal conjunctiva, sclera anicteric CV: regular rate/rhythm, no murmur Pulm: diminished bilaterally, but clear to auscultation Abd: soft, nontender, nondistended Ext: no rash, no lesions, several scattered ecchymosis on arms/legs/L knee Neuro: AAOx3, 5/5 str throughout except 4/5 str at LLE, normal sensation bilaterally Problem List Syncope likely due to recent initiation of gabapentin MATT elevated CPK, rhabdomyolysis hypokalemia Chronic back pain with LLE Weakness Anxiety/Depression HTN -unclear etiology of syncope - reports only down for a few seconds, no loss of bowel/bladder function; orthostatics negative, likely from recent initiation of gabapentin -elevated CPK, from falls /rhabdo, continue IVF -CPK worsened yesterday, awaiting labs for today -UTI, pt reports urinary frequency, had infection once before with kidney stone, f/u urine culture, continue Levaquin -CT abd/pelvis done - no hydronephrosis, +nephrolithiasis, no other acute findings -nephrology consulted -MRI, echo, carotid U/S ordered to eval causes of syncope; carotids WNL VTE: lovenox Code: full Dispo: anticipate dc home in ~24-48hrs, pending improvement in ambulation / CPK / renal function Time Spent Managing Pts Care (In Minutes): 35
--- NOTE | 2020-05-25 15:23 | PN ---
Date of Progress Note: 05/25/2020 Subjective: The patient was seen and examined. He denies any complaints. He states that he slept m uch better last night. Physical Examination: Vital Signs: Reviewed and are stable. General: He appears in no acute distress. Lungs: Clear to auscultation. Abdomen: Soft and nontender. Extremities: Multiple bruises noted in lower extremities. Laboratory Data: At this time showing creatinine of 1.31, CPK level improving to 6595. CBC showed s table hemoglobin, hematocrit, and platelet count. Immunologies are still pending. Impression: 1.Acute renal failure, improving. 2.Hematuria. Nephritis workup ordered, pending at this time. 3.Rhabdomyolysis, improving. Continue IV fluids. 4.Hypokalemia has improved. 5.Recurrent falls, likely secondary to medication side effects. Plan: Overall, the patient is doing okay at this time. Continue all medications and plan of care. Continue to monitor renal function closely and avoid further hypotension and nephrotoxins, and we higinio l follow up on the immunologic workup that was sent off. ANTHONY/OSORIO Voice ID: [id number] Report ID: [id number]
[2020-05-25] MEDS: BUPROPION HCL XL 150 MG TAB PO SCH (16:56)
[2020-05-25] MEDS ORDERED: GABAPENTIN 300 MG CAP PO SCH (21:00)
[2020-05-25] MEDS: ZOLPIDEM TARTRATE 5 MG TABLET PO PRN (21:01)
[2020-05-25] MEDS: Levofloxacin 750mg IV 750 MG/150 ML BAG IV SCH (21:01)
[2020-05-25] MEDS: MELATONIN 3 MG TABLET PO SCH (21:01)
[2020-05-26 06:38] LABS: Magnesium 1.7 mg/dL (1.8-2.4); Phosphorus 2.9 mg/dL (2.5-4.9); Potassium 3.7 mmol/L (3.5-5.1)
--- NOTE | 2020-05-26 08:05 | ECHO ---
HEIGHT: 6 ft 0 in WEIGHT: 402 lb 14.4 oz DATE OF STUDY: 05/23/[address]: Terrell Hernandez MD 2-DIMENSIONAL: YES M.MODE: YES DOPPLER: YES COLOR FLOW: YES TDS: YES PORTABLE: DEFINITY: BUBBLE STUDY: DIAGNOSIS: SYNCOPE CARDIAC HISTORY: CATHERIZATION: NO SURGERY: NO PROSTHETIC VALVE: NO PACEMAKER: NO MEASUREMENTS (cm) DIASTOLIC (NORMALS) SYSTOLIC (NORMALS) IVSd 1.3 (0.6-1.2) LA Diam 3.6 (1.9-4.0) LVEF 53% LVIDd 5.6 (3.5-5.7) LVIDs 4.1 (2.0-3.5) %FS 27% LVPWd 1.3 (0.6-1.2) Ao Diam 3.0 (2.0-3.7) 2 DIMENSIONAL ASSESSMENT: POOR WINDOWS RIGHT ATRIUM: LEFT ATRIUM: RIGHT VENTRICLE: LEFT VENTRICLE: TRICUSPID VALVE: MITRAL VALVE: PULMONIC VALVE: AORTIC VALVE: PERICARDIAL EFFUSION: AORTIC ROOT: LEFT VENTRICULAR WALL MOTION: DOPPLER/COLOR FLOW: COMMENTS: VERY POOR STUDY. LEFT VENTRICULAR EJECTION FRACTION APPEARS NORMAL , RECOMMEND CONTRAST ECHOCARDIOGRAM. TECHNOLOGIST: ALEXANDER CHANDLER
[2020-05-26] MEDS ORDERED: POTASSIUM CL SA 10 MEQ TAB PO ONE (09:00)
[2020-05-26] MEDS ORDERED: HOME MED 1 EA UNK (Bupropion Hcl [Wellbutrin Xl] 300 MG Tab.Er.24h) PO SCH (09:00)
[2020-05-26] MEDS ORDERED: MAGNESIUM SULFATE 1 gm IVPB 1 GM/100 ML BAG IV ONE (09:00)
[2020-05-26] MEDS: DOCUSATE NA 100 MG CAP PO SCH (09:00)
[2020-05-26] MEDS: BUPROPION HCL XL 150 MG TAB PO SCH (09:37)
[2020-05-26] MEDS: ASPIRIN 81 MG CHEWABLE TABLET PO SCH (09:37)
[2020-05-26] MEDS: ENOXAPARIN 40 MG/0.4 ML SQ SCH (09:37)
[2020-05-26] MEDS: ATORVASTATIN 80 MG TAB PO SCH (09:38)
[2020-05-26] MEDS: VENLAFAXINE HCL 75 MG TABLET PO SCH (09:38)
[2020-05-26] MEDS: NACHLORIDE 0.45% 1,000 ML IV SCH (11:00)
[2020-05-26 11:27] VITALS: O2SAT 97
[2020-05-26 12:36] VITALS: BP 146/65; TEMP 97.6
--- NOTE | 2020-05-26 20:11 | P.PN ---
Date of Service: 05/26/20 Vital Signs Temp Pulse Resp BP Pulse Ox 97.6 F 67 18 146/65 H 95 05/26/20 12:00 05/26/20 12:00 05/26/20 12:00 05/26/20 12:00 05/26/20 12:00 Microbiology Results 05/23/20 07:40 Clean Catch Urine [place] Count - Final <10,000 CFU/ML. 05/23/20 07:40 Clean Catch Urine - Final MIXED MARIA C. Assessment/ Plan: Nephrology No acute cardiac or pulmonary complaints. No CP or SOB. Feeling better. No acute events overnight. Vitals, medications, blood work and imaging reviewed in the chart. General: Oriented x3, Cooperative HEENT: Atraumatic Neck: Supple Respiratory: Diminished Cardiovascular: No edema, Regular rate/rhythm Gastrointestinal: Soft and benign, Non-distended Musculoskeletal: No clubbing, No contractures Integumentary: No rashes, No cyanosis, Skin lesion Neurological: Normal speech Laboratory Data (last 24 hrs) 05/23/20 06:15: PT 11.8, INR 1.03, APTT 30.3 05/23/20 06:15: WBC 15.00 H, Hgb 12.6 L, Hct 39.2 L, Plt Count 287 05/23/20 06:15: Sodium 142, Potassium 3.8, BUN 14, Creatinine 1.96 H, Glucose 108 H, Magnesium 2.8 H, Total Bilirubin 0.4, AST 42 H, ALT 38, Alkaline Phosphatase 117, Lipase 101 Imagings Data: EXAM DESCRIPTION: - - 05/23/2020 2:06 pm CLINICAL HISTORY: syncope COMPARISON: No comparisons TECHNIQUE: Real-time sonographic evaluation of bilateral carotid and vertebral systems was performed. Hinton scale and Doppler interrogation were performed with waveform tracing bilaterally. FINDINGS: Normal high resistance waveforms are noted in both external carotid arteries. The common carotid arteries and internal carotid arteries show normal low resistance waveforms. Mild plaquing changes are present without visual evidence for significant luminal narrowing. Peak systolic and end diastolic velocity values and the ICA/CCA ratios are in the non-hemodynamically significant range. Antegrade flow was identified in the left vertebral artery. Right vertebral artery could not be visualized. Velocity values and ratios were recorded and are retained in the patient's imaging records. IMPRESSION: No significant atherosclerotic changes noted. No evidence of a hemodynamically significant stenosis. Nonvisualization of the right vertebral artery. Nonvisualization does not necessarily equate to dissection or occlusion. Nonvisualization can occur in normal asymptomatic patients due to small vessel size or anatomic limitations. EXAM DESCRIPTION: CT - Stone Protocol - 05/23/2020 11:40 am CLINICAL HISTORY: Flank pain. KIDNEY STONES COMPARISON: No comparisons TECHNIQUE: Axial images were obtained without oral or IV contrast. Lack of contrast limits solid organ and vascular assessment. The [id number] spans the entirety of the system partially obscuring uppermost abdomen and lung bases. Coronal reformatted images were obtained and reviewed. All CT scans are performed using dose optimization technique as appropriate and may include automated exposure control or mA/KV adjustment according to patient size. FINDINGS: Mild linear subsegmental atelectasis is present in both lung bases posteriorly. Small hiatal hernia. Small low-density lesion measuring 11 mm is seen in the anterior right lobe of the liver.No intra or extrahepatic biliary tree dilatation. The pancreas and adrenal glands are normal. No pathologic lymphadenopathy in the abdomen or pelvis. Several stones are present in the left kidney. No hydronephrosis is seen. No right-sided stones or hydronephrosis. No bowel obstruction, free air, free fluid or abscess. Normal appendix noted.Moderate stool is present throughout the colon. Moderate lumbar degenerative changes are present. IMPRESSION: Left nephrolithiasis is noted without hydronephrosis. Moderate retained stool throughout the colon. EXAM DESCRIPTION: CT - Head Brain Wo Cont - 05/23/2020 6:51 am CLINICAL HISTORY: SYNCOPE Fall, trauma, head injury COMPARISON: No comparisons TECHNIQUE: All CT scans are performed using dose optimization technique as appropriate and may include automated exposure control or mA/KV adjustment according to patient size. FINDINGS: No intracranial hemorrhage, hydrocephalus or extra-axial fluid collection.Mild brain atrophy is present.No areas of brain edema or evidence of midline shift. The paranasal sinuses and mastoids are clear. The calvarium is intact. IMPRESSION: No acute intracranial abnormality. Conclusions/Impression: A/P: Continue the current POC and Medications other than the changes listed. AM Labs PRN. Recommend daily weight. Please see the orders for complete details. MATT vs CKD. Intermittent NSAIDs. Hematuria -No NSAIDs -Hematuria evaluation pending -Continue IVF 1/2NS @100 Rhabdomyolysis -Continue IVF Left nephrolithiasis without obstruction -Continue IVF HTN with CKD -Change HCTZ to prn for discharge Anemia in chronic illness -Monitor H&H Acute cystitis -Continue Levaquin Case reviewed with Dr. Hernandez
[2020-05-30 06:32] LABS: Alpha-1-Globulins 0.4 g/dL (0.2-0.3); Alpha-2-Globulins 0.9 g/dL (0.5-0.9); Gamma Globulins 0.7 g/dL (0.8-1.7)
[2020-05-30 06:33] LABS: INTERPRETATION REPORT
[2020-05-30 10:53] LABS: Immunoglobulin A 254 mg/dL (70-320); Immunoglobulin G 733 mg/dL (600-1540); Immunoglobulin M 26 mg/dL (50-300)
--- NOTE | 2020-06-01 22:19 | P.DS ---
Admission Date: 05/23/20 Discharge Date: 05/26/20 Disposition: ROUTINE DISCHARGE Discharge Condition: GOOD Reason for Admission: MATT, UTI, Syncope Consultations: Nephrology - Dr. Perez Procedures: CT Head (05/23): No acute intracranial abnormality. CT Abd (05/23): Left nephrolithiasis is noted without hydronephrosis. Moderate retained stool throughout the colon. Carotid U/S (05/23): No significant atherosclerotic changes noted. No evidence of a hemodynamically significant stenosis. TTE (05/23): very poor study. LVEF appears normal. Problem List Syncope likely due to recent initiation of gabapentin MATT secondary to elevated CPK, rhabdomyolysis Hypokalemia Chronic back pain with LLE Weakness Anxiety/Depression HTN Brief History of Present Illness: 69yo M, presents to ED after multiple falls and 3 syncopal episodes at home. Patient states he was in usual state of health until ~3-4 days ago. He began to have generalized weakness, one episodes of "burning up". Over past 2 days he fell trying to get out of bed due to generalized weakness. He had 2-3 episodes of "blacking out" for a few seconds when getting up to go to the bathroom. He reports urinating more frequently lately. After this happened, he feels like his L leg is slightly weaker - but states this is chronic and happens from time to time, since he has had chronic back pain. Was told he needed surgery for his back but he declines. Workup in ED revealed negative CT Head, leukocytosis, MATT, UA concerning for UTI. He reports h/o kidney stone and infection in the past. He is admitted for further evaluation / treatment. Hospital Course: Patient was monitored on telemetry, treated with IVF, and Gabapentin was discontinued. He had significant improvement in his symptoms and no longer had any syncopal or near-syncopal episodes. He was feeling well and reported he was ready for discharge home. His renal function improved and stabilized. He was discharged home. It was recommended to stay hydrated and follow up with his PCP and Nephrology. Vital Signs/Physical Exam: Physical Exam: Gen: NAD, obese HEENT: normal conjunctiva, sclera anicteric CV: regular rate/rhythm, no murmur Pulm: diminished bilaterally, but clear to auscultation Abd: soft, nontender, nondistended Ext: no rash, no lesions, several scattered ecchymosis on arms/legs/L knee Neuro: AAOx3, 5/5 str throughout except 4+/5 str at LLE, normal sensation bilaterally Temp Pulse Resp BP Pulse Ox 97.6 F 67 18 146/65 H 95 05/26/20 12:00 05/26/20 12:00 05/26/20 12:00 05/26/20 12:00 05/26/20 12:00 Laboratory Data at Discharge: WBC 9.30 K/uL (4.3-10.9) 05/25/20 05:48 Hgb 12.4 g/dL (13.6-17.9) L 05/25/20 05:48 Hct 36.9 % (39.6-49.0) L 05/25/20 05:48 Plt Count 264 K/uL (152-406) 05/25/20 05:48 PT 11.8 SECONDS (9.5-12.5) 05/23/20 06:15 INR 1.03 05/23/20 06:15 APTT 30.3 SECONDS (24.3-36.9) 05/23/20 06:15 Sodium 140 mmol/L (136-145) 05/26/20 05:42 Potassium 3.7 mmol/L (3.5-5.1) 05/26/20 05:42 BUN 11 mg/dL (7-18) 05/26/20 05:42 Creatinine 1.10 mg/dL (0.55-1.3) 05/26/20 05:42 Glucose 92 mg/dL (74-106) 05/26/20 05:42 Uric Acid 9.7 mg/dL (3.5-7.2) H 05/24/20 07:35 Phosphorus 2.9 mg/dL (2.5-4.9) 05/26/20 05:42 Magnesium 1.7 mg/dL (1.8-2.4) L 05/26/20 05:42 Total Bilirubin 0.5 mg/dL (0.2-1.0) 05/25/20 05:48 AST 261 U/L (15-37) H 05/25/20 05:48 ALT 63 U/L (12-78) 05/25/20 05:48 Alkaline Phosphatase 110 U/L (45-117) 05/25/20 05:48 Lipase 101 U/L (73-393) 05/23/20 06:15 Home Medications: Amlodipine Besylate 10 mg PO DAILY 05/23/20 Aspirin 81 mg PO DAILY 05/23/20 Atorvastatin Calcium [Lipitor] 80 mg PO DAILY 05/23/20 Bupropion HCl [Wellbutrin Xl] 300 mg PO DAILY 05/23/20 Losartan Potassium 1 tab PO DAILY 05/23/20 Melatonin [Melatonin*] 1 tab PO BEDTIME 05/23/20 Niacin [Niacin ER] 1 tab PO BEDTIME 05/23/20 Potassium Gluconate [Potassium] 99 mg PO BEDTIME 05/23/20 Trazodone HCl [Desyrel] 1 tab PO BEDTIME 05/23/20 Venlafaxine HCl [Effexor*] 150 mg PO DAILY 05/23/20 Zolpidem Tartrate [Ambien*] 10 mg PO BEDTIME 05/23/20 Diet: AHA Activity: Ad christian Followup: Darryl Perez DO [ACTIVE - CAN ADMIT] - NONE,NONE [Primary Care Provider] - Time spent managing pt's care (in minutes): 35
== END 2020-05-26 15:39 | disposition home or self-care (01) | DRG 683 ==
LOC: ER 05:49 → ERHOLD 12:47 → 2ND 14:28
PROVIDERS: ADMIT Hospitalist; ATTEND Hospitalist
DX: N17.9 Acute kidney failure, unspecified (principal); M62.82 Rhabdomyolysis; N30.01 Acute cystitis with hematuria; Z68.43 Body mass index [BMI] 50.0-59.9, adult; E66.9 Obesity, unspecified; G89.29 Other chronic pain; M54.9 Dorsalgia, unspecified; F41.9 Anxiety disorder, unspecified; F32.9 Major depressive disorder, single episode, unspecified; N20.0 Calculus of kidney; I12.9 Hypertensive chronic kidney disease with stage 1 through stage 4 chronic kidney disease, or unspecified chronic kidney disease; N18.9 Chronic kidney disease, unspecified; E87.6 Hypokalemia; F51.04 Psychophysiologic insomnia; R74.8 Abnormal levels of other serum enzymes; R55 Syncope and collapse; T42.6X5A Adverse effect of other antiepileptic and sedative-hypnotic drugs, initial encounter; W18.30XA Fall on same level, unspecified, initial encounter; Z88.0 Allergy status to penicillin; Z79.82 Long term (current) use of aspirin; Z87.891 Personal history of nicotine dependence; Z79.899 Other long term (current) drug therapy; Z20.822 Contact with and (suspected) exposure to COVID-19
CPT/HCPCS: 36415; 70450; 74176; 76377; 80048; 80053; 80076; 81001; 81003; 81015; 82550; 82570; 82784; 82947; 83520; 83690; 83735; 83880; 84100; 84132; 84145; 84156; 84165; 84300; 84439; 84443; 84484; 84550; 85025; 85610; 85730; 86021; 86038; 86140; 86160; 86334; 86335; 87040; 87086; 87088; 93005; 93306; 93880; 94760; 94762; 97116; 97161; 97530; 99285; J1650; J3475; J3480; J7030; J7040; U0003